=== PATIENT | female | born 1955 | race Caucasian/White ===

== ENCOUNTER 2017-05-21 14:00 | Inpatient (IN) | payer OTHER ==
[2017-05-21 15:57] VITALS: BMI 22.8
--- NOTE | 2017-05-21 17:37 | HP ---
COWS - Scale Resting Pulse: 0= [place] 80 or Below Sweatin=Flushed/Facial Moisture Restless Observation: 1= Difficult to Sit Still Pupil Size: 0= Normal to Room Light Bone or Joint Aches: 1= Mild Discomfort Runny Nose/ Eye Tearin= Runny Nose/Eyes GI Upset > 30mins: 3= Vomiting/Diarrhea (3x diarrhea) Tremor Observation: 2= Slight Tremor Visible Yawning Observation: 1= 1-2x During Session Anxiety or Irritability: 2=Irritable/Anxious Goose Flesh Skin: 0=Smooth Skin COWS Score: 14 CIWA Score - CIWA Score Nausea/Vomitin-Mild Nausea/No Vomiting Muscle Tremors: 2 Anxiety: 2 Agitation: 0-Normal Activity Paroxysmal Sweats: 3 Orientation: 0-Oriented Tacttile Disturbances: 2-Mild Itch/Numbness/Burn (hand and feet) Auditory Disturbances: 2-Mild Harshness/Frighten Visual Disturbances: 2-Mild Sensitivity Headache: 2-Mild CIWA-Ar Total Score: 16 Admission [facility] - HPI Chief Complaint: I am here to detox, everything hurts and I have diarrhea. Allergies/Adverse Reactions: Allergies Allergy/AdvReac Type Severity Reaction Status Date / Time Penicillins Allergy Unknown Verified 05/21/17 17:53 Fish Containing Products AdvReac Severe Verified 05/21/17 17:53 History of Present Illness: 61 yo female with hx heroin, alcohol, nicotine and heroin dependence is here seeking detox. PHMX: HTN not taking medication, OA, DM II not on medication, Hep C, hx of seizure d/t head trauma, insomnia, depression and anxiety. Denies hx of alcohol related seizures, black outs or overdose. Denies suicidal / homicidal ideation, reports suicidal thoughts when her mother passed in 1999. Last detox 12 years ago [facility]. Longest period of sobriety 12 years. Exam Limitations: No Limitations - Ebola screening Have you traveled outside of the country in the last 21 days: No Have you had contact with anyone from an Ebola affected area: No Have you been sick,other than usual withdrawal symptoms: No Do you have a fever: No - Review of Systems Constitutional: Chills, Loss of Appetite, Changes in sleep, Weakness, Unintentional Wgt. Loss (12 lbs in the past week) EENT: reports: Double Vision, Tearing, Dental Problems (pain on gums x 3 years) , Other (floaters) Respiratory: reports: SOB with Exertion (going up the steps) Cardiac: reports: Edema (ankles and) GI: reports: Diarrhea, Nausea, Poor Appetite, Poor Fluid Intake, Abdominal cramping : reports: No Symptoms Reported Musculoskeletal: reports: Joint Pain (wrist, elbows, knees, feet), Other (uses a cane for ambulation) Integumentary: reports: No Symptoms Reported Neuro: reports: Headache, Numbness, Tingling, Other (uses cane for ambualtion) Endocrine: reports: Increased Thirst Hematology: reports: Anemia Psychiatric: reports: Orientated x3, Depressed Other Systems: Reviewed and Negative Patient History - Patient Medical History Hx Anemia: Yes (not in medication ) Hx Asthma: No Hx Chronic Obstructive Pulmonary Disease (COPD): No Hx Cancer: No Hx Cardiac Disorders: No Hx Congestive Heart Failure: No Hx Hypertension: Yes ( not on medication ) Hx Hypercholesterolemia: No Hx Pacemaker: No HX Cerebrovascular Accident: Yes (2007) Hx Seizures: Yes (seizure r/t to head trauma, last seizure 45 days ago tx at [facility] ) Hx Dementia: No Hx Diabetes: Yes (no on medications ) Hx Gastrointestinal Disorders: No Hx Liver Disease: Yes (Hep C not treated ) Hx Genitourinary Disorders: No Hx Sexually Transmitted Disorders: No Hx Renal Disease (ESRD): No Hx Thyroid Disease: No Hx Human Immunodeficiency Virus (HIV): No (Last tested August 2016) Hx Hepatitis C: Yes Hx Depression: Yes Hx Suicide Attempt: No (no attempts but has had ideation 1999) Hx Bipolar Disorder: No Hx Schizophrenia: No - Patient Surgical History Past Surgical History: Yes Hx Neurologic Surgery: No Hx Cataract Extraction: No Hx Cardiac Surgery: No Hx Lung Surgery: No Hx Breast Surgery: No Hx Breast Biopsy: No Hx Abdominal Surgery: Yes (removal of on intestinal blockage 7 years ago ) Hx Appendectomy: No Hx Cholecystectomy: No Hx Genitourinary Surgery: No Hx Section: No Hx Orthopedic Surgery: No Hx Hysterectomy: No Other Surgical History: 2 atopic pregnacies - PPD History Previous Implant?: No Documented Results: Positive w/o proof PPD to be Administered?: No - Reproductive History Patient is a Female of Child Bearing Age (11 -55 yrs old): No - Smoking Cessation Smoking history: Current every day smoker Have you smoked in the past 12 months: Yes Aproximately how many cigarettes per day: 6 Cigars Per Day: 0 Hx Chewing Tobacco Use: No Initiated information on smoking cessation: Yes 'Breaking Loose' booklet given: 05/21/17 - Substance & Tx. History Hx Alcohol Use: Yes Hx Substance Use: Yes Substance Use Type: Alcohol, Cocaine, Heroin Hx Substance Use Treatment: Yes ([facility] 12 years ago ) - Substances Abused Alcohol Route: Oral Frequency: Daily Amount used: 3- 4 bottles of 40 oz beers Age of first use: 35 Date of Last Use: 05/19/17 Cocaine Route: Smoking Frequency: 3-6 times per week Amount used: $20-$50 Age of first use: 35 Date of Last Use: 05/20/17 Heroin Route: Inhalation Frequency: Daily Amount used: 4 - 5 Age of first use: 35 Date of Last Use: 05/20/17 Family Disease History - Family Disease History Family Disease History: [place]: Father (, [place] ), Mother (, ovarian cancer), Other: Father, Mother, Brother (, IV heroin ), Sister (, IV heroin ) Admission Physical Exam [facility] - Vital Signs Vital Signs: Vital Signs - 24 hr 05/21/17 15:51 Temperature 98.0 F Pulse Rate 79 Respiratory 16 Rate Blood Pressure 149/79 - Physical General Appearance: Yes: Disheveled, Thin, Sweating, Anxious HEENTM: Yes: EOMI, Hearing grossly Normal, Normal ENT Inspection, Normocephalic , Normal Voice, Pharynx Normal, Tm's normal, Rhinorrhea Respiratory: Yes: Chest Non-Tender, Lungs Clear, Normal Breath Sounds, No Respiratory Distress, No Accessory Muscle Use Neck: Yes: No masses,lesions,Nodules, Trachea in good position Breast: Yes: Breast Exam Deferred Cardiology: Yes: Regular Rhythm, Regular Rate, S1, S2, Murmur Abdominal: Yes: Normal Bowel Sounds, Non Tender, Flat, Soft Genitourinary: Yes: Within Normal Limits Back: Yes: Normal Inspection Musculoskeletal: Yes: Gait Steady, Pelvis Stable, Other (Joint pain : elbows, right wrist, b/t knees) Extremities: Yes: Normal Capillary Refill, Normal Inspection, Normal Range of Motion, Non-Tender Neurological: Yes: Within Normal Limits, web portal developer II-XII NML intact, Fully Oriented, Alert, Motor Strength 5/5, Depressed Affect Integumentary: Yes: Normal Color, Dry, Warm Lymphatic: Yes: Within Normal Limits - Diagnostic (1) Cocaine dependence Current Visit: Yes Status: Acute Qualifiers: Substance use status: uncomplicated Qualified Code(s): F14.20 - Cocaine dependence, uncomplicated (2) Opioid dependence with withdrawal Current Visit: Yes Status: Acute (3) Hypertension Current Visit: Yes Status: Acute Qualifiers: Hypertension type: essential hypertension Qualified Code(s): I10 - Essential (primary) hypertension Comment: no medication (4) Alcohol dependence with withdrawal Current Visit: Yes Status: Acute Qualifiers: Complication of substance-induced condition: uncomplicated Qualified Code(s ): F10.230 - Alcohol dependence with withdrawal, uncomplicated (5) Nicotine dependence Current Visit: Yes Status: Chronic Qualifiers: Nicotine product type: cigarettes (6) Murmur Current Visit: Yes Status: Chronic (7) History of seizure Current Visit: Yes Status: Chronic (8) Diabetes mellitus type 2, diet-controlled Current Visit: Yes Status: Chronic (9) Hepatitis C Current Visit: Yes Status: Chronic Qualifiers: Viral hepatitis chronicity: unspecified (10) Depressed affect Current Visit: Yes Status: Acute (11) Difficulty sleeping Current Visit: Yes Status: Acute (12) Weight loss Current Visit: Yes Status: Acute Cleared for Admission S - Detox or Rehab [facility] Level of Care: Medically Managed Detox Regimen/Protocol: Methadone/Librium S Breath Alcohol Content Breath Alcohol Content: 0 Urine Drug Screen - Results Drug Screen Negative: No Urine Drug Screen Results: THC-Marijuana, JEANETH-Cocaine, OPI-Opiates, BAR- Barbiturates, TCA-Tricyclic Antidepress, OXY-Oxycodone
[2017-05-21] MEDS ORDERED: METHADONE HCL 10 MG TABLET (FOR DETOX USE ONLY) PO ONE ×2 (17:55→23:00)
[2017-05-21] MEDS ORDERED: chlordiazePOXIDE HCL 25 MG CAPSULE PO ONE (17:55)
[2017-05-21] MEDS ORDERED: guaiFENesin/D-METHORPHAN HB 10 ML UNIT-DOSE CUPS PO PRN (18:02)
[2017-05-21] MEDS ORDERED: IBUPROFEN 400 MG TABLET (FP) PO PRN (18:02)
[2017-05-21] MEDS ORDERED: P-EPHED 60MG/TRIPROLIDI 2.5MG TABLET PO PRN (18:02)
[2017-05-21] MEDS ORDERED: MAGNESIUM CITRATE 300 ML BOTTLE PO PRN (18:02)
[2017-05-21] MEDS ORDERED: NICOTINE POLACRILEX 2 MG GUM BC PRN (18:02)
[2017-05-21] MEDS ORDERED: hydrOXYzine PAMOATE 25 MG CAPSULE (FP) PO PRN (18:02)
[2017-05-21] MEDS ORDERED: MENTHOL/PHENOL 1 EACH UD MM PRN (18:02)
[2017-05-21] MEDS ORDERED: MAG HYDROX/AL HYDROX/SIMETH 30 ML UNIT-DOSE CUP PO PRN (18:02)
[2017-05-21] MEDS ORDERED: ACETAMINOPHEN 325 MG TABLET (FP) PO PRN (18:02)
[2017-05-21] MEDS: chlordiazePOXIDE HCL 25 MG CAPSULE PO PRN (20:12)
[2017-05-21] MEDS ORDERED: METHADONE HCL 10 MG TABLET (FOR DETOX USE ONLY) ONE (20:18)
[2017-05-21] MEDS: chlordiazePOXIDE HCL 25 MG CAPSULE PO SCH (22:23)
[2017-05-21] MEDS: THIAMINE HCL 100 MG TABLET (FP) PO SCH (22:23)
[2017-05-21 23:58] LABS: URINE APPEARANCE CLOUDY; URINE BILIRUBIN NEGATIVE (NEGATIVE); URINE BLOOD NEGATIVE (NEGATIVE); URINE COLOR AMBER; URINE GLUCOSE (UA) NEGATIVE (NEGATIVE); URINE KETONE TRACE (NEGATIVE); URINE NITRITE NEGATIVE (NEGATIVE)
[2017-05-22 00:03] LABS: URINE LEUK ESTERASE 2+ (NEGATIVE); URINE PROTEIN 2+ (NEGATIVE)
[2017-05-22 00:13] LABS: EPI CELLS RARE /HPF (FEW); URINE BACTERIA RARE /hpf (NONE SEEN); URINE HYALINE CAST 38 /lpf; URINE MUCUS MANY
[2017-05-22] MEDS: chlordiazePOXIDE HCL 25 MG CAPSULE PO SCH ×4 (05:53→22:33)
--- NOTE | 2017-05-22 09:23 | PN ---
S CIWA - CIWA Score Nausea/Vomitin-Mild Nausea/No Vomiting Muscle Tremors: 4-Moderate,w/Arms Extend Anxiety: 4-Mod. Anxious/Guarded Agitation: 4-Moderately Restless Paroxysmal Sweats: 1-Minimal Palms Moist Orientation: 0-Oriented Tacttile Disturbances: 0-None Auditory Disturbances: 0-None Visual Disturbances: 0-None Headache: 0-None Present CIWA-Ar Total Score: 14 BHS COWS - Scale Resting Pulse: 1= [place] 81-100 Sweatin= Chills/Flushing Restless Observation: 1= Difficult to Sit Still Pupil Size: 0= Normal to Room Light Bone or Joint Aches: 2= Severe Diffuse Aches Runny Nose/ Eye Tearin= Nasal Congestion GI Upset > 30mins: 2= Nausea/Diarrhea Tremor Observation of Outstretched Hands: 2= Slight Tremor Visible Yawning Observation: 2= >3x During Session Anxiety or Irritability: 1=Feels Anxious/Irritable Goose Flesh Skin: 0=Smooth Skin COWS Score: 13 S Progress Note (SOAP) Subjective: joint pain body ache sweat tremor restlessness Objective: 05/22/17 09:22 Vital Signs Temperature 97.9 F 05/22/17 06:20 Pulse Rate 81 05/22/17 06:20 Respiratory Rate 18 05/22/17 06:20 Blood Pressure 128/81 05/22/17 06:20 O2 Sat by Pulse Oximetry (%) Laboratory Last Values POC Glucometer 103 UNITS (80-120) 05/22/17 06:10 Urine Color Ankita 05/21/17 23:40 Urine Appearance Cloudy 05/21/17 23:40 Urine pH 5.0 (5.0-8.0) 05/21/17 23:40 Ur Specific [place] 1.025 (1.001-1.035) 05/21/17 23:40 Urine Protein 2+ (NEGATIVE) H 05/21/17 23:40 Urine Glucose (UA) Negative (NEGATIVE) 05/21/17 23:40 Urine Ketones Trace (NEGATIVE) H 05/21/17 23:40 Urine Blood Negative (NEGATIVE) 05/21/17 23:40 Urine Nitrite Negative (NEGATIVE) 05/21/17 23:40 Urine Bilirubin Negative (NEGATIVE) 05/21/17 23:40 Urine Urobilinogen 2.0 mg/dL (0.2-1.0) H 05/21/17 23:40 Ur Leukocyte Esterase 2+ (NEGATIVE) H 05/21/17 23:40 Urine WBC (Auto) 31 /hpf (3-5) 05/21/17 23:40 Urine RBC (Auto) 4 /hpf (0-3) 05/21/17 23:40 Ur Epithelial Cells Rare /HPF (FEW) 05/21/17 23:40 Urine Bacteria Rare /hpf (NONE SEEN) 05/21/17 23:40 Hyaline Casts 38 /lpf 05/21/17 23:40 Urine Mucus Many 05/21/17 23:40 lab noted Assessment: 05/22/17 09:22 withdrawal sx Plan: continue detox
--- NOTE | 2017-05-22 09:55 | CONSULT ---
[facility] Psychiatric Consult - Data Date of interview: 05/22/17 Admission source: [facility] Identifying data: Pt. is a 61 year old single woman, without kids, unemployed and homeless. This is patient's first admission to [facility]. Pt. admitted to detox for alcohol, heroin and cocaine admission. Substance Abuse History: Following information confirmed with Ms. Mabry: Smoking Cessation. Smoking history: Current every day smoker. Have you smoked in the past 12 months: Yes. Aproximately how many cigarettes per day: 6. Cigars Per Day: 0. Hx Chewing Tobacco Use: No. Initiated information on smoking cessation: Yes. 'Breaking Loose' booklet given: 05/21/17. - Substance & Tx. History. Hx Alcohol Use: Yes. Hx Substance Use: Yes. Substance Use Type : Alcohol, Cocaine, Heroin. Hx Substance Use Treatment: Yes ([facility] 12 years ago ). - Substances Abused. Alcohol. Route: Oral. Frequency: Daily. Amount used: 3- 4 bottles of 40 oz beers. Age of first use: 35. Date of Last Use: 05/19/17. Cocaine. Route: Smoking. Frequency: 3-6 times per week. Amount used: $20-$50. Age of first use: 35. Date of Last Use: . Heroin. Route: Inhalation. Frequency: Daily. Amount used: 4 - 5. Age of first use: 35. Date of Last Use: 05/20/17 Medical History: Anemia, hypertension, Seizures( r/t head trauma last seen [address] [facility]) Hep C Psychiatric History: Pt. denies h/o psychiatric hospitalizations, suicide attempts and outpatient care. Pt. is currently prescribed tregatol for seizures. Physical/Sexual Abuse/Trauma History: Denies. Mental Status Exam - Mental Status Exam Alert and Oriented to: Time, Place, Person Cognitive Function: Good Patient Appearance: Well Groomed Mood: Euthymic Affect: Appropriate Patient Behavior: Appropriate, Cooperative Speech Pattern: Appropriate Voice Loudness: Normal Thought Process: Intact Thought Disorder: Not Present Hallucinations: Denies Suicidal Ideation: Denies Homicidal Ideation: Denies Insight/Judgement: Poor Sleep: Poorly Appetite: Fair Muscle strength/Tone: Normal Gait/Station: Normal Psychiatric Findings - Problem List ([place] 1, 2,3) (1) Insomnia Current Visit: Yes Status: Acute (2) Alcohol dependence with withdrawal Current Visit: Yes Status: Acute Qualifiers: Complication of substance-induced condition: uncomplicated Qualified Code(s ): F10.230 - Alcohol dependence with withdrawal, uncomplicated (3) Cocaine dependence Current Visit: Yes Status: Acute Qualifiers: Substance use status: uncomplicated Qualified Code(s): F14.20 - Cocaine dependence, uncomplicated (4) Opioid dependence with withdrawal Current Visit: Yes Status: Acute (5) Nicotine dependence Current Visit: Yes Status: Chronic Qualifiers: Nicotine product type: cigarettes - Initial Treatment Plan Initial Treatment Plan: Psychoeducation provided. Detoxification in progress. Ambien 5mg qhs prn. Benefits and side effects (sleep walking) discussed. Verbal consent given. Will continue to monitor.
[2017-05-22] MEDS ORDERED: METHADONE HCL 10 MG TABLET (FOR DETOX USE ONLY) PO SCH (10:00)
[2017-05-22] MEDS: NICOTINE 14 MG/24 HOURS TOPICAL PATCH TD SCH (10:13)
[2017-05-22] MEDS: PRENATAL VITAMINS W/ FOLIC ACID TABLET (FP) PO SCH (10:13)
[2017-05-22 10:14] LABS: HEMATOCRIT 36.2 % (32.4-45.2); HEMOGLOBIN 12.1 GM/dL (10.7-15.3); MCH 28.5 pg (25.7-33.7); MCHC 33.4 g/dl (32.0-36.0); MEAN CELL VOLUME 85.4 fl (80-96); MEAN PLT VOLUME 10.1 fl (7.5-11.1); PLATELET COUNT 167 K/MM3 (134-434); RBC 4.23 M/mm3 (3.60-5.2); RDW 14.7 % (11.6-15.6); WHITE BLOOD COUNT 6.3 K/mm3 (4.0-10.0)
[2017-05-22 10:21] LABS: ANION GAP 14 (8-16); BILIRUBIN,TOTAL 0.2 mg/dL (0.2-1.0); BLOOD UREA NITROGEN 23 mg/dL (7-18); CALCIUM 7.7 mg/dL (8.5-10.1); CHLORIDE 107 mmol/L (98-107); CO2 23 mmol/L (21-32); CREATININE 0.7 mg/dL (0.55-1.02); GLUCOSE,RANDOM 112 mg/dL (74-106); POTASSIUM 3.6 mmol/L (3.5-5.1); SGOT/AST 20 U/L (15-37); SGPT/ALT 21 U/L (12-78); SODIUM 144 mmol/L (136-145); TOT PROT 5.7 g/dl (6.4-8.2)
[2017-05-22 10:22] LABS: ALK PHOS 96 U/L (45-117)
--- NOTE | 2017-05-22 11:12 | PN ---
S Progress Note Note: un-witness fall buttock on ground O denies pain, alert, oriented x 3, own slipper is not equip for non-slip encourage the patient not to wear her own slipper S 120/59 86 18 98.2 lumbar skin intact no bruise none tender, no swell, able to move actively her both legs freely on the bed, skin warm +2 pulses A unwitness fall P as per protocol ambulance had been called to ER evaluation, information provided to ER #1 fall protocol
--- NOTE | 2017-05-22 12:14 | EKG ---
Test Reason : Blood Pressure : / mmHG Vent. Rate : 072 BPM Atrial Rate : 072 BPM P-R Int : 170 ms QRS Dur : 068 ms QT Int : 396 ms P-R-T Axes : 074 043 053 degrees QTc Int : 433 ms NORMAL SINUS RHYTHM NORMAL ECG NO PREVIOUS ECGS AVAILABLE Confirmed by MD DONNELL, JED ([id number]) on 05/22/2017 12:13:55 PM Referred By: Confirmed By:JED JACOBO MD
[2017-05-22] MEDS: LOPERAMIDE HCL 2 MG CAPSULE PO PRN ×2 (14:55→22:34)
[2017-05-22] MEDS: chlordiazePOXIDE HCL 25 MG CAPSULE PO PRN (19:16)
[2017-05-22] MEDS ORDERED: ZOLPIDEM TARTRATE 5 MG TABLET PO PRN (22:00)
[2017-05-22] MEDS: THIAMINE HCL 100 MG TABLET (FP) PO SCH (22:33)
[2017-05-23] MEDS: chlordiazePOXIDE HCL 25 MG CAPSULE PO PRN (02:36)
[2017-05-23] MEDS: chlordiazePOXIDE HCL 25 MG CAPSULE PO SCH ×3 (06:03→17:35)
--- NOTE | 2017-05-23 10:41 | PN ---
[facility] CIWA - CIWA Score Nausea/Vomitin-Mild Nausea/No Vomiting Muscle Tremors: 4-Moderate,w/Arms Extend Anxiety: 3 Agitation: 3 Paroxysmal Sweats: 1-Minimal Palms Moist Orientation: 0-Oriented Tacttile Disturbances: 0-None Auditory Disturbances: 0-None Visual Disturbances: 0-None Headache: 0-None Present CIWA-Ar Total Score: 12 BHS COWS - Scale Resting Pulse: 0= [place] 80 or Below Sweatin= Chills/Flushing Restless Observation: 1= Difficult to Sit Still Pupil Size: 0= Normal to Room Light Bone or Joint Aches: 1= Mild Discomfort Runny Nose/ Eye Tearin= Nasal Congestion GI Upset > 30mins: 1= Stomach Cramp Tremor Observation of Outstretched Hands: 2= Slight Tremor Visible Yawning Observation: 2= >3x During Session Anxiety or Irritability: 2=Irritable/Anxious Goose Flesh Skin: 0=Smooth Skin COWS Score: 11 S Progress Note (SOAP) Subjective: joint ache muscle pain sweat restlessness tremor anxiety mild gi distress Objective: 05/23/17 10:40 Vital Signs Temperature 96.8 F L 05/23/17 06:49 Pulse Rate 74 05/23/17 06:49 Respiratory Rate 18 05/23/17 06:49 Blood Pressure 123/70 05/23/17 06:49 O2 Sat by Pulse Oximetry (%) Laboratory Last Values WBC 6.3 K/mm3 (4.0-10.0) 05/22/17 07:00 RBC 4.23 M/mm3 (3.60-5.2) 05/22/17 07:00 Hgb 12.1 GM/dL (10.7-15.3) 05/22/17 07:00 Hct 36.2 % (32.4-45.2) 05/22/17 07:00 MCV 85.4 fl (80-96) 05/22/17 07:00 MCH 28.5 pg (25.7-33.7) 05/22/17 07:00 MCHC 33.4 g/dl (32.0-36.0) 05/22/17 07:00 RDW 14.7 % (11.6-15.6) 05/22/17 07:00 Plt Count 167 K/MM3 (134-434) 05/22/17 07:00 MPV 10.1 fl (7.5-11.1) 05/22/17 07:00 Sodium 144 mmol/L (136-145) 05/22/17 07:00 Potassium 3.6 mmol/L (3.5-5.1) 05/22/17 07:00 Chloride 107 mmol/L (98-107) 05/22/17 07:00 Carbon Dioxide 23 mmol/L (21-32) 05/22/17 07:00 Anion Gap 14 (8-16) 05/22/17 07:00 BUN 23 mg/dL (7-18) H 05/22/17 07:00 Creatinine 0.7 mg/dL (0.55-1.02) 05/22/17 07:00 Creat Clearance w eGFR > 60 (>60) 05/22/17 07:00 POC Glucometer 92 UNITS (80-120) 05/23/17 05:58 Random Glucose 112 mg/dL (74-106) H 05/22/17 07:00 Calcium 7.7 mg/dL (8.5-10.1) L 05/22/17 07:00 Total Bilirubin 0.2 mg/dL (0.2-1.0) 05/22/17 07:00 AST 20 U/L (15-37) 05/22/17 07:00 ALT 21 U/L (12-78) 05/22/17 07:00 Alkaline Phosphatase 96 U/L (45-117) 05/22/17 07:00 Total Protein 5.7 g/dl (6.4-8.2) L 05/22/17 07:00 Albumin 3.0 g/dl (3.4-5.0) L 05/22/17 07:00 Urine Color Ankita 05/21/17 23:40 Urine Appearance Cloudy 05/21/17 23:40 Urine pH 5.0 (5.0-8.0) 05/21/17 23:40 Ur Specific [place] 1.025 (1.001-1.035) 05/21/17 23:40 Urine Protein 2+ (NEGATIVE) H 05/21/17 23:40 Urine Glucose (UA) Negative (NEGATIVE) 05/21/17 23:40 Urine Ketones Trace (NEGATIVE) H 05/21/17 23:40 Urine Blood Negative (NEGATIVE) 05/21/17 23:40 Urine Nitrite Negative (NEGATIVE) 05/21/17 23:40 Urine Bilirubin Negative (NEGATIVE) 05/21/17 23:40 Urine Urobilinogen 2.0 mg/dL (0.2-1.0) H 05/21/17 23:40 Ur Leukocyte Esterase 2+ (NEGATIVE) H 05/21/17 23:40 Urine WBC (Auto) 31 /hpf (3-5) 05/21/17 23:40 Urine RBC (Auto) 4 /hpf (0-3) 05/21/17 23:40 Ur Epithelial Cells Rare /HPF (FEW) 05/21/17 23:40 Urine Bacteria Rare /hpf (NONE SEEN) 05/21/17 23:40 Hyaline Casts 38 /lpf 05/21/17 23:40 Urine Mucus Many 05/21/17 23:40 RPR Titer Nonreactive (NONREACTIVE) 05/22/17 07:00 HIV 1&2 Antibody Screen Negative 05/22/17 08:00 HIV P24 Antigen Negative 05/22/17 08:00 lab noted Assessment: 05/23/17 10:41 withdrawal sx Plan: continue detox
[2017-05-23] MEDS: PRENATAL VITAMINS W/ FOLIC ACID TABLET (FP) PO SCH (10:43)
[2017-05-23] MEDS: NICOTINE 14 MG/24 HOURS TOPICAL PATCH TD SCH (10:44)
[2017-05-23] MEDS: METHADONE HCL 5 MG TABLET (FOR DETOX USE ONLY) PO SCH (10:44)
[2017-05-23] MEDS: THIAMINE HCL 100 MG TABLET (FP) PO SCH (22:34)
[2017-05-23] MEDS: chlordiazePOXIDE 5 MG CAPSULE PO SCH (22:34)
[2017-05-24] MEDS: chlordiazePOXIDE 5 MG CAPSULE PO SCH ×3 (05:54→17:05)
[2017-05-24] MEDS: PRENATAL VITAMINS W/ FOLIC ACID TABLET (FP) PO SCH (10:15)
[2017-05-24] MEDS: METHADONE HCL 5 MG TABLET (FOR DETOX USE ONLY) PO SCH (10:16)
[2017-05-24] MEDS: NICOTINE 14 MG/24 HOURS TOPICAL PATCH TD SCH (10:16)
--- NOTE | 2017-05-24 11:43 | PN ---
[facility] Progress Note (SOAP) Subjective: joint aches muscle pain stuffy nose sweat tremor restlessness irritable Objective: 05/24/17 11:42 Vital Signs Temperature 97.5 F L 05/24/17 10:58 Pulse Rate 60 05/24/17 10:58 Respiratory Rate 18 05/24/17 10:58 Blood Pressure 97/55 05/24/17 10:58 O2 Sat by Pulse Oximetry (%) Laboratory Last Values WBC 6.3 K/mm3 (4.0-10.0) 05/22/17 07:00 RBC 4.23 M/mm3 (3.60-5.2) 05/22/17 07:00 Hgb 12.1 GM/dL (10.7-15.3) 05/22/17 07:00 Hct 36.2 % (32.4-45.2) 05/22/17 07:00 MCV 85.4 fl (80-96) 05/22/17 07:00 MCH 28.5 pg (25.7-33.7) 05/22/17 07:00 MCHC 33.4 g/dl (32.0-36.0) 05/22/17 07:00 RDW 14.7 % (11.6-15.6) 05/22/17 07:00 Plt Count 167 K/MM3 (134-434) 05/22/17 07:00 MPV 10.1 fl (7.5-11.1) 05/22/17 07:00 Sodium 144 mmol/L (136-145) 05/22/17 07:00 Potassium 3.6 mmol/L (3.5-5.1) 05/22/17 07:00 Chloride 107 mmol/L (98-107) 05/22/17 07:00 Carbon Dioxide 23 mmol/L (21-32) 05/22/17 07:00 Anion Gap 14 (8-16) 05/22/17 07:00 BUN 23 mg/dL (7-18) H 05/22/17 07:00 Creatinine 0.7 mg/dL (0.55-1.02) 05/22/17 07:00 Creat Clearance w eGFR > 60 (>60) 05/22/17 07:00 POC Glucometer 94 UNITS (80-120) 05/24/17 05:55 Random Glucose 112 mg/dL (74-106) H 05/22/17 07:00 Calcium 7.7 mg/dL (8.5-10.1) L 05/22/17 07:00 Total Bilirubin 0.2 mg/dL (0.2-1.0) 05/22/17 07:00 AST 20 U/L (15-37) 05/22/17 07:00 ALT 21 U/L (12-78) 05/22/17 07:00 Alkaline Phosphatase 96 U/L (45-117) 05/22/17 07:00 Total Protein 5.7 g/dl (6.4-8.2) L 05/22/17 07:00 Albumin 3.0 g/dl (3.4-5.0) L 05/22/17 07:00 Urine Color [place] 05/21/17 23:40 Urine Appearance Cloudy 05/21/17 23:40 Urine pH 5.0 (5.0-8.0) 05/21/17 23:40 Ur Specific [place] 1.025 (1.001-1.035) 05/21/17 23:40 Urine Protein 2+ (NEGATIVE) H 05/21/17 23:40 Urine Glucose (UA) Negative (NEGATIVE) 05/21/17 23:40 Urine Ketones Trace (NEGATIVE) H 05/21/17 23:40 Urine Blood Negative (NEGATIVE) 05/21/17 23:40 Urine Nitrite Negative (NEGATIVE) 05/21/17 23:40 Urine Bilirubin Negative (NEGATIVE) 05/21/17 23:40 Urine Urobilinogen 2.0 mg/dL (0.2-1.0) H 05/21/17 23:40 Ur Leukocyte Esterase 2+ (NEGATIVE) H 05/21/17 23:40 Urine WBC (Auto) 31 /hpf (3-5) 05/21/17 23:40 Urine RBC (Auto) 4 /hpf (0-3) 05/21/17 23:40 Ur Epithelial Cells Rare /HPF (FEW) 05/21/17 23:40 Urine Bacteria Rare /hpf (NONE SEEN) 05/21/17 23:40 Hyaline Casts 38 /lpf 05/21/17 23:40 Urine Mucus Many 05/21/17 23:40 RPR Titer Nonreactive (NONREACTIVE) 05/22/17 07:00 HIV 1&2 Antibody Screen Negative 05/22/17 08:00 HIV P24 Antigen Negative 05/22/17 08:00 lab noted Assessment: 05/24/17 11:43 withdrawal sx Plan: continue detox
[2017-05-24] MEDS: chlordiazePOXIDE HCL 10 MG CAPSULE PO SCH (22:24)
[2017-05-24] MEDS: THIAMINE HCL 100 MG TABLET (FP) PO SCH (22:24)
[2017-05-24] MEDS: PHENYTOIN NA EXTENDED 100 MG CAPSULE (FP) PO SCH (23:21)
[2017-05-25] MEDS: carBAMazepine 100 MG TAB.CHEW PO SCH ×3 (00:04→22:17)
[2017-05-25] MEDS: chlordiazePOXIDE HCL 10 MG CAPSULE PO SCH ×3 (06:00→17:34)
[2017-05-25] MEDS: PHENYTOIN NA EXTENDED 100 MG CAPSULE (FP) PO SCH ×3 (06:00→22:17)
[2017-05-25] MEDS ORDERED: METHADONE HCL 10 MG TABLET (FOR DETOX USE ONLY) PO SCH (10:00)
[2017-05-25] MEDS: NICOTINE 14 MG/24 HOURS TOPICAL PATCH TD SCH (10:34)
[2017-05-25] MEDS: PRENATAL VITAMINS W/ FOLIC ACID TABLET (FP) PO SCH (10:34)
--- NOTE | 2017-05-25 12:38 | PN ---
[facility] Progress Note (SOAP) Subjective: interrupted sleep, sweats, shakes, no sz's Objective: 05/25/17 12:37 Vital Signs Temperature 97.9 F 05/25/17 10:40 Pulse Rate 68 05/25/17 10:40 Respiratory Rate 18 05/25/17 10:40 Blood Pressure 112/56 05/25/17 10:40 O2 Sat by Pulse Oximetry (%) Laboratory Tests 05/21/17 05/22/17 05/22/17 23:40 06:10 07:00 WBC 6.3 RBC 4.23 Hgb 12.1 Hct 36.2 MCV 85.4 MCH 28.5 MCHC 33.4 RDW 14.7 Plt Count 167 MPV 10.1 Sodium Potassium Chloride Carbon Dioxide Anion Gap BUN Creatinine Creat Clearance w eGFR POC Glucometer 103 Random Glucose Calcium Total Bilirubin AST ALT Alkaline Phosphatase Total Protein Albumin Urine Color [place] Urine Appearance Cloudy Urine pH 5.0 Ur Specific [place] 1.025 Urine Protein 2+ H Urine Glucose (UA) Negative Urine Ketones Trace H Urine Blood Negative Urine Nitrite Negative Urine Bilirubin Negative Urine Urobilinogen 2.0 H Ur Leukocyte Esterase 2+ H Urine WBC (Auto) 31 Urine RBC (Auto) 4 Ur Epithelial Cells Rare Urine Bacteria Rare Hyaline Casts 38 Urine Mucus Many Phenytoin RPR Titer HIV 1&2 Antibody Screen HIV P24 Antigen 05/22/17 05/22/17 05/22/17 07:00 07:00 08:00 WBC RBC Hgb Hct MCV MCH MCHC RDW Plt Count MPV Sodium 144 Potassium 3.6 Chloride 107 Carbon Dioxide 23 Anion Gap 14 BUN 23 H Creatinine 0.7 Creat Clearance w eGFR > 60 POC Glucometer Random Glucose 112 H Calcium 7.7 L Total Bilirubin 0.2 AST 20 ALT 21 Alkaline Phosphatase 96 Total Protein 5.7 L Albumin 3.0 L Urine Color Urine Appearance Urine pH Ur Specific [place] Urine Protein Urine Glucose (UA) Urine Ketones Urine Blood Urine Nitrite Urine Bilirubin Urine Urobilinogen Ur Leukocyte Esterase Urine WBC (Auto) Urine RBC (Auto) Ur Epithelial Cells Urine Bacteria Hyaline Casts Urine Mucus Phenytoin RPR Titer Nonreactive HIV 1&2 Antibody Screen Negative HIV P24 Antigen Negative 05/22/17 05/23/17 05/23/17 12:11 05:58 16:44 WBC RBC Hgb Hct MCV MCH MCHC RDW Plt Count MPV Sodium Potassium Chloride Carbon Dioxide Anion Gap BUN Creatinine Creat Clearance w eGFR POC Glucometer [phone] 92 119 Random Glucose Calcium Total Bilirubin AST ALT Alkaline Phosphatase Total Protein Albumin Urine Color Urine Appearance Urine pH Ur Specific [place] Urine Protein Urine Glucose (UA) Urine Ketones Urine Blood Urine Nitrite Urine Bilirubin Urine Urobilinogen Ur Leukocyte Esterase Urine WBC (Auto) Urine RBC (Auto) Ur Epithelial Cells Urine Bacteria Hyaline Casts Urine Mucus Phenytoin RPR Titer HIV 1&2 Antibody Screen HIV P24 Antigen 05/24/17 05/24/17 05/25/17 05:55 16:39 06:21 WBC RBC Hgb Hct MCV MCH MCHC RDW Plt Count MPV Sodium Potassium Chloride Carbon Dioxide Anion Gap BUN Creatinine Creat Clearance w eGFR POC Glucometer 94 103 134 Random Glucose Calcium Total Bilirubin AST ALT Alkaline Phosphatase Total Protein Albumin Urine Color Urine Appearance Urine pH Ur Specific [place] Urine Protein Urine Glucose (UA) Urine Ketones Urine Blood Urine Nitrite Urine Bilirubin Urine Urobilinogen Ur Leukocyte Esterase Urine WBC (Auto) Urine RBC (Auto) Ur Epithelial Cells Urine Bacteria Hyaline Casts Urine Mucus Phenytoin RPR Titer HIV 1&2 Antibody Screen HIV P24 Antigen 05/25/17 08:00 WBC RBC Hgb Hct MCV MCH MCHC RDW Plt Count MPV Sodium Potassium Chloride Carbon Dioxide Anion Gap BUN Creatinine Creat Clearance w eGFR POC Glucometer Random Glucose Calcium Total Bilirubin AST ALT Alkaline Phosphatase Total Protein Albumin Urine Color Urine Appearance Urine pH Ur Specific [place] Urine Protein Urine Glucose (UA) Urine Ketones Urine Blood Urine Nitrite Urine Bilirubin Urine Urobilinogen Ur Leukocyte Esterase Urine WBC (Auto) Urine RBC (Auto) Ur Epithelial Cells Urine Bacteria Hyaline Casts Urine Mucus Phenytoin < 2.5 L RPR Titer HIV 1&2 Antibody Screen HIV P24 Antigen pt aox3 in nad ambulating with cane 05/25/17 12:38 Assessment: 05/25/17 12:37 withdrawal sx's h/o sz's Plan: cont. detox increase fluids
[2017-05-25] MEDS ORDERED: PHENYTOIN NA EXTENDED 100 MG CAPSULE (FP) PO ONE (17:00)
[2017-05-25] MEDS: ALBUTEROL SO4 18 GM HFA INHALER IH SCH ×2 (17:38→22:17)
--- NOTE | 2017-05-25 20:11 | PN ---
[facility] Progress Note Note: Patient s/p witness fall and skip and fell on her buttocks by two other patients. Patient reports that she feels anxious because she is concern about her aftercare upon discharge. Vital Signs Temperature 97.5 F L 05/25/17 19:28 Pulse Rate 75 05/25/17 19:28 Respiratory Rate 18 05/25/17 19:28 Blood Pressure 109/73 05/25/17 19:28 O2 Sat by Pulse Oximetry (%) Laboratory Last Values WBC 6.3 K/mm3 (4.0-10.0) 05/22/17 07:00 RBC 4.23 M/mm3 (3.60-5.2) 05/22/17 07:00 Hgb 12.1 GM/dL (10.7-15.3) 05/22/17 07:00 Hct 36.2 % (32.4-45.2) 05/22/17 07:00 MCV 85.4 fl (80-96) 05/22/17 07:00 MCH 28.5 pg (25.7-33.7) 05/22/17 07:00 MCHC 33.4 g/dl (32.0-36.0) 05/22/17 07:00 RDW 14.7 % (11.6-15.6) 05/22/17 07:00 Plt Count 167 K/MM3 (134-434) 05/22/17 07:00 MPV 10.1 fl (7.5-11.1) 05/22/17 07:00 Sodium 144 mmol/L (136-145) 05/22/17 07:00 Potassium 3.6 mmol/L (3.5-5.1) 05/22/17 07:00 Chloride 107 mmol/L (98-107) 05/22/17 07:00 Carbon Dioxide 23 mmol/L (21-32) 05/22/17 07:00 Anion Gap 14 (8-16) 05/22/17 07:00 BUN 23 mg/dL (7-18) H 05/22/17 07:00 Creatinine 0.7 mg/dL (0.55-1.02) 05/22/17 07:00 Creat Clearance w eGFR > 60 (>60) 05/22/17 07:00 POC Glucometer 84 UNITS (80-120) 05/25/17 17:04 Random Glucose 112 mg/dL (74-106) H 05/22/17 07:00 Calcium 7.7 mg/dL (8.5-10.1) L 05/22/17 07:00 Total Bilirubin 0.2 mg/dL (0.2-1.0) 05/22/17 07:00 AST 20 U/L (15-37) 05/22/17 07:00 ALT 21 U/L (12-78) 05/22/17 07:00 Alkaline Phosphatase 96 U/L (45-117) 05/22/17 07:00 Total Protein 5.7 g/dl (6.4-8.2) L 05/22/17 07:00 Albumin 3.0 g/dl (3.4-5.0) L 05/22/17 07:00 Urine Color [place]ita 05/21/17 23:40 Urine Appearance Cloudy 05/21/17 23:40 Urine pH 5.0 (5.0-8.0) 05/21/17 23:40 Ur Specific [place] 1.025 (1.001-1.035) 05/21/17 23:40 Urine Protein 2+ (NEGATIVE) H 05/21/17 23:40 Urine Glucose (UA) Negative (NEGATIVE) 05/21/17 23:40 Urine Ketones Trace (NEGATIVE) H 05/21/17 23:40 Urine Blood Negative (NEGATIVE) 05/21/17 23:40 Urine Nitrite Negative (NEGATIVE) 05/21/17 23:40 Urine Bilirubin Negative (NEGATIVE) 05/21/17 23:40 Urine Urobilinogen 2.0 mg/dL (0.2-1.0) H 05/21/17 23:40 Ur Leukocyte Esterase 2+ (NEGATIVE) H 05/21/17 23:40 Urine WBC (Auto) 31 /hpf (3-5) 05/21/17 23:40 Urine RBC (Auto) 4 /hpf (0-3) 05/21/17 23:40 Ur Epithelial Cells Rare /HPF (FEW) 05/21/17 23:40 Urine Bacteria Rare /hpf (NONE SEEN) 05/21/17 23:40 Hyaline Casts 38 /lpf 05/21/17 23:40 Urine Mucus Many 05/21/17 23:40 Phenytoin < 2.5 ug/ml (10.0-20.0) L 05/25/17 08:00 RPR Titer Nonreactive (NONREACTIVE) 05/22/17 07:00 HIV 1&2 Antibody Screen Negative 05/22/17 08:00 HIV P24 Antigen Negative 05/22/17 08:00 Patient AO x 3, in no apparent distress, ambulation on the unit with cane, c/o of soreness on the buttocks. Patient with full ROM and negative neuro signs. Plan: Fall Protocol #[address] repeat U/A Increase fluids Continue to monitor
[2017-05-25] MEDS: THIAMINE HCL 100 MG TABLET (FP) PO SCH (22:17)
[2017-05-25] MEDS: MAGNESIUM HYDROX 2400MG/30ML ORAL SUSPENSION 30 ML CUP PO PRN (22:31)
[2017-05-26] MEDS: ALBUTEROL SO4 18 GM HFA INHALER IH SCH ×3 (04:00→22:42)
[2017-05-26] MEDS ORDERED: METHADONE HCL 5 MG TABLET (FOR DETOX USE ONLY) PO SCH (06:00)
[2017-05-26] MEDS: PHENYTOIN NA EXTENDED 100 MG CAPSULE (FP) PO SCH ×3 (06:51→22:41)
[2017-05-26 10:24] LABS: INR 0.99 (0.82-1.09); PROTHROMBIN TIME (PATIENT) 11.2 SEC (9.98-11.88)
[2017-05-26 10:25] LABS: URINE APPEARANCE CLEAR; URINE BILIRUBIN NEGATIVE (NEGATIVE); URINE BLOOD NEGATIVE (NEGATIVE); URINE COLOR LTYELLOW; URINE GLUCOSE (UA) NEGATIVE (NEGATIVE); URINE KETONE NEGATIVE (NEGATIVE); URINE LEUK ESTERASE NEGATIVE (NEGATIVE); URINE NITRITE NEGATIVE (NEGATIVE); URINE PROTEIN NEGATIVE (NEGATIVE); URINE UROBILINOGEN NEGATIVE mg/dL (0.2-1.0)
[2017-05-26 10:27] LABS: ACTIVATED PTT 37.1 SECONDS (26.9-34.4)
[2017-05-26] MEDS: PRENATAL VITAMINS W/ FOLIC ACID TABLET (FP) PO SCH (10:29)
[2017-05-26] MEDS: carBAMazepine 100 MG TAB.CHEW PO SCH ×2 (10:29→22:41)
[2017-05-26] MEDS: NICOTINE 14 MG/24 HOURS TOPICAL PATCH TD SCH (10:29)
[2017-05-26] MEDS: MAGNESIUM HYDROX 2400MG/30ML ORAL SUSPENSION 30 ML CUP PO PRN (14:54)
--- NOTE | 2017-05-26 15:26 | PN ---
[facility] Progress Note (SOAP) Subjective: ALERT,INTERRUPTED SLEEP Objective: 05/26/17 15:24 Vital Signs Temperature 98.1 F 05/26/17 14:08 Pulse Rate 73 05/26/17 14:08 Respiratory Rate 16 05/26/17 14:08 Blood Pressure 114/63 05/26/17 14:08 O2 Sat by Pulse Oximetry (%) Assessment: 05/26/17 15:24 WITHDRAWAL SYMPTOM Plan: CONTINUE DETOX,HISTORY OF FALL 05/25/17 ON FALL PROTOCOL 2 OBSERVATION, DISCHARGE IN AM
--- NOTE | 2017-05-26 18:46 | EKG ---
Test Reason : Blood Pressure : / mmHG Vent. Rate : 066 BPM Atrial Rate : 066 BPM P-R Int : 156 ms QRS Dur : 074 ms QT Int : 404 ms P-R-T Axes : 046 015 046 degrees QTc Int : 423 ms NORMAL SINUS RHYTHM NORMAL ECG WHEN COMPARED WITH ECG OF 21-MAY-2017 19:24, NO SIGNIFICANT CHANGE WAS FOUND Confirmed by OMKAR GLASER MD ([id number]) on 05/26/2017 6:45:58 PM Referred By: Confirmed By:OMKAR GLASER MD
[2017-05-26] MEDS: THIAMINE HCL 100 MG TABLET (FP) PO SCH (22:41)
[2017-05-27] MEDS: ALBUTEROL SO4 18 GM HFA INHALER IH SCH ×3 (00:04→11:02)
[2017-05-27] MEDS: PHENYTOIN NA EXTENDED 100 MG CAPSULE (FP) PO SCH (07:00)
[2017-05-27 10:01] VITALS: BP 118/57; PULSE 80; TEMP 98.1
--- NOTE | 2017-05-27 10:58 | DS ---
[facility] Detox Discharge Summary Admission Date: 05/21/17 Discharge Date: 05/27/17 - History Present History: Alcohol Dependence, Opioid Dependence Additional Comments: 61 years old female admitted for alcohol and opiate detox, alert oriented x 3 steady gait, denies pain, social with peers in day room ambulating in [address] good appetite tolerates food and fluid well, denies dizziness no shortness of breath no muscle joint pain cardiac s1s2 pulmonary clear bilaterally abdomen soft none tender extremities full range of motion, neuro cn ii-xiii grossly intact denies weakness patient wants to [facility], return 05/28/17 patient understands the consequences of medication adherence patient agrees to follow up with primary care provider - Physical Exam Results Vital Signs: Vital Signs Temperature 98.1 F 05/27/17 10:00 Pulse Rate 80 05/27/17 10:00 Respiratory Rate 18 05/27/17 10:00 Blood Pressure 118/57 05/27/17 10:00 O2 Sat by Pulse Oximetry (%) Pertinent Admission Physical Exam Findings: withdrawal sx Laboratory Last Values WBC 6.3 K/mm3 (4.0-10.0) 05/22/17 07:00 RBC 4.23 M/mm3 (3.60-5.2) 05/22/17 07:00 Hgb 12.1 GM/dL (10.7-15.3) 05/22/17 07:00 Hct 36.2 % (32.4-45.2) 05/22/17 07:00 MCV 85.4 fl (80-96) 05/22/17 07:00 MCH 28.5 pg (25.7-33.7) 05/22/17 07:00 MCHC 33.4 g/dl (32.0-36.0) 05/22/17 07:00 RDW 14.7 % (11.6-15.6) 05/22/17 07:00 Plt Count 167 K/MM3 (134-434) 05/22/17 07:00 MPV 10.1 fl (7.5-11.1) 05/22/17 07:00 PT with INR 11.20 SEC (9.98-11.88) 05/26/17 08:50 INR 0.99 (0.82-1.09) 05/26/17 08:50 PTT (Actin FS) 37.1 SECONDS (26.9-34.4) H 05/26/17 08:50 Sodium 144 mmol/L (136-145) 05/22/17 07:00 Potassium 3.6 mmol/L (3.5-5.1) 05/22/17 07:00 Chloride 107 mmol/L (98-107) 05/22/17 07:00 Carbon Dioxide 23 mmol/L (21-32) 05/22/17 07:00 Anion Gap 14 (8-16) 05/22/17 07:00 BUN 23 mg/dL (7-18) H 05/22/17 07:00 Creatinine 0.7 mg/dL (0.55-1.02) 05/22/17 07:00 Creat Clearance w eGFR > 60 (>60) 05/22/17 07:00 POC Glucometer 136 UNITS (80-120) 05/26/17 16:57 Random Glucose 112 mg/dL (74-106) H 05/22/17 07:00 Calcium 7.7 mg/dL (8.5-10.1) L 05/22/17 07:00 Total Bilirubin 0.2 mg/dL (0.2-1.0) 05/22/17 07:00 AST 20 U/L (15-37) 05/22/17 07:00 ALT 21 U/L (12-78) 05/22/17 07:00 Alkaline Phosphatase 96 U/L (45-117) 05/22/17 07:00 Total Protein 5.7 g/dl (6.4-8.2) L 05/22/17 07:00 Albumin 3.0 g/dl (3.4-5.0) L 05/22/17 07:00 Urine Color [place] 05/26/17 08:50 Urine Appearance Clear 05/26/17 08:50 Urine pH 6.0 (5.0-8.0) 05/26/17 08:50 Ur Specific [place] 1.012 (1.001-1.035) 05/26/17 08:50 Urine Protein Negative (NEGATIVE) 05/26/17 08:50 Urine Glucose (UA) Negative (NEGATIVE) 05/26/17 08:50 Urine Ketones Negative (NEGATIVE) 05/26/17 08:50 Urine Blood Negative (NEGATIVE) 05/26/17 08:50 Urine Nitrite Negative (NEGATIVE) 05/26/17 08:50 Urine Bilirubin Negative (NEGATIVE) 05/26/17 08:50 Urine Urobilinogen Negative mg/dL (0.2-1.0) 05/26/17 08:50 Ur Leukocyte Esterase Negative (NEGATIVE) 05/26/17 08:50 Urine WBC (Auto) 31 /hpf (3-5) 05/21/17 23:40 Urine RBC (Auto) 4 /hpf (0-3) 05/21/17 23:40 Ur Epithelial Cells Rare /HPF (FEW) 05/21/17 23:40 Urine Bacteria Rare /hpf (NONE SEEN) 05/21/17 23:40 Hyaline Casts 38 /lpf 05/21/17 23:40 Urine Mucus Many 05/21/17 23:40 Phenytoin < 2.5 ug/ml (10.0-20.0) L 05/25/17 08:00 RPR Titer Nonreactive (NONREACTIVE) 05/22/17 07:00 HIV 1&2 Antibody Screen Negative 05/22/17 08:00 HIV P24 Antigen Negative 05/22/17 08:00 lab noted - Treatment Hospital Course: Detox Protocol Followed, Detoxed Safely, Responded well, Discharged Condition Good, Rehab Referral Accepted Patient has Accepted a Re[facility] Referral to: [facility] - Medication Discharge Medications: Ambulatory Orders Albuterol Sulfate Inhaler - [Ventolin HFA Inhaler -] 2 inh PO Q6H #1 inhaler Carbamazepine [Tegretol -] 100 mg PO BID #60 tab.chew 05/27/17 Phenytoin Na Extended [Dilantin -] 100 mg PO TID #90 capsule 05/27/17 - Diagnosis (1) Opioid dependence with withdrawal Current Visit: Yes Status: Acute (2) Alcohol dependence with withdrawal Current Visit: Yes Status: Acute Qualifiers: Complication of substance-induced condition: uncomplicated Qualified Code(s ): F10.230 - Alcohol dependence with withdrawal, uncomplicated (3) Hepatitis C Current Visit: Yes Status: Chronic Qualifiers: Viral hepatitis chronicity: unspecified Hepatic coma status: without hepatic coma Qualified Code(s): B19.20 - Unspecified viral hepatitis C without hepatic coma (4) Fall with no injury Current Visit: Yes Status: Chronic Qualifiers: Encounter type: initial encounter Qualified Code(s): W19.XXXA - Unspecified fall, initial encounter - AMA Did Patient Leave Against Medical Advice: No
[2017-05-27] MEDS: PRENATAL VITAMINS W/ FOLIC ACID TABLET (FP) PO SCH (11:01)
[2017-05-27] MEDS: NICOTINE 14 MG/24 HOURS TOPICAL PATCH TD SCH (11:01)
[2017-05-27] MEDS: carBAMazepine 100 MG TAB.CHEW PO SCH (11:02)
== END 2017-05-27 14:25 | disposition home or self-care (01) | DRG 773 ==
LOC: YASAS 14:00 → Y6N 18:48
PROVIDERS: ADMIT Internal Medicine; ATTEND Internal Medicine
PROC: HZ2ZZZZ Detoxification Services for Substance Abuse Treatment (ICD-10-PCS; principal; 2017-05-21)
DX: F11.23 Opioid dependence with withdrawal (principal); F10.230 Alcohol dependence with withdrawal, uncomplicated; F14.20 Cocaine dependence, uncomplicated; F17.210 Nicotine dependence, cigarettes, uncomplicated; F41.8 Other specified anxiety disorders; G47.00 Insomnia, unspecified; I10 Essential (primary) hypertension; E11.9 Type 2 diabetes mellitus without complications; R63.4 Abnormal weight loss; Z68.22 Body mass index [BMI] 22.0-22.9, adult; Z86.69 Personal history of other diseases of the nervous system and sense organs; Z59.0 Homelessness
CPT/HCPCS: 36415; 71046-TC-FY; 80053; 80185; 81003; 81015; 82962; 85027; 85610; 85730; 86593; 87389; 93005; 93010

== ENCOUNTER 2017-05-22 11:51 | Emergency (ER) | payer OTHER ==
[2017-05-22 12:27] VITALS: BP 129/79; PULSE 74; TEMP 98.5; BMI 49.8
--- NOTE | 2017-05-22 12:46 | PDOC ---
History of Present Illness - General Chief Complaint: Injury Stated Complaint: fall Time Seen by Provider: 05/22/17 11:57 History Source: Patient Exam Limitations: No Limitations - History of Present Illness Initial Comments: 05/22/17 12:48 Patient states was trying to put on her shoes when the socks lost director database on the floor and she slipped and fell landing on her buttocks. Patient states did not strike her head, has no injury to her buttocks coccyx back or extremities. States detox program has insisted she needed evaluation. Patient's persistent denies there was any injury or any areas of pain. Occurred: reports: just prior to arrival, this morning Pain Location: reports: none Method of Injury: Yes: fall Modifying Factors: improves with: None Loss of Consciousness: no loss of consciousness Associated Symptoms (Fall): denies symptoms Past History - Travel Traveled outside of the country in the last 30 days: No Close contact w/someone who was outside of country & ill: No - Past Medical History Allergies/Adverse Reactions: Allergies Allergy/AdvReac Type Severity Reaction Status Date / Time Penicillins Allergy Unknown Verified 05/22/17 12:28 Fish Containing Products AdvReac Severe Verified 05/21/17 17:53 Home Medications: Ambulatory Orders Albuterol Sulfate Inhaler - [Ventolin Hfa Inhaler -] 2 inh PO Q6H 05/21/17 Carbamazepine [Tegretol -] 100 mg PO BID 05/21/17 Phenytoin Na Extended [Dilantin -] 100 mg PO TID 05/21/17 Anemia: Yes (not in medication ) Asthma: No Cancer: No Cardiac Disorders: No CVA: Yes (2007) COPD: No CHF: No Dementia: No Diabetes: Yes (no on medications ) GI Disorders: No Disorders: No HTN: Yes ( not on medication ) Hypercholesterolemia: No Liver Disease: Yes (Hep C not treated ) Seizures: Yes (seizure r/t to head trauma, last seizure 45 days ago tx at [facility] ) Thyroid Disease: No - Surgical History Abdominal Surgery: Yes (removal of on intestinal blockage 7 years ago ) Appendectomy: No Cardiac Surgery: No Cholecystectomy: No Lung Surgery: No Neurologic Surgery: No Orthopedic Surgery: No - Immunization History Immunization Up to Date: Yes - Suicide/Smoking/Psychosocial Hx Smoking History: Former smoker Have you smoked in the past 12 months: Yes Number of Cigarettes Smoked Daily: 40 If you are a former smoker, when did you quit?: 05/20/17 Cigars Per Day: 0 Information on smoking cessation initiated: No 'Breaking Loose' booklet given: 05/21/17 Hx Alcohol Use: Yes Drug/Substance Use Hx: Yes Substance Use Type: Alcohol, Cocaine, Heroin Hx Substance Use Treatment: Yes ([facility] 12 years ago ) Review of Systems - Review of Systems Able to Perform ROS?: Yes Is the patient limited Bah[place]i proficient: Yes Constitutional: Yes: Symptoms Reported, See HPI, Malaise. No: Chills, Fever HEENTM: Yes: See HPI. No: Symptoms Reported Respiratory: No: Symptoms reported ABD/GI: No: Symptoms Reported Neurological: Yes: Symptoms reported All Other Systems: Reviewed and Negative *Physical Exam - Vital Signs Last Vital Signs Temp Pulse Resp BP Pulse Ox 98.5 F 74 14 129/79 96 05/22/17 12:19 05/22/17 12:19 05/22/17 12:19 05/22/17 12:19 05/22/17 12:19 - Physical Exam General Appearance: Yes: Nourished, Appropriately Dressed. No: Apparent Distress HEENT: positive: AGUS, Normal ENT Inspection, TMs Normal, Pharynx Normal, Other (no contusion, abrasion, area of injury. No hematoma, no bleeding from nose or ears, no evidence of head injury.) Neck: positive: Supple. negative: Tender Respiratory/Chest: positive: Lungs Clear Musculoskeletal: positive: Normal Inspection. negative: CVA Tenderness Extremity: positive: Normal Capillary Refill Integumentary: positive: Normal Color, Warm. negative: Swelling, Ecchymosis, Bruising Neurologic: positive: sample prep technician II-XII NML intact, Fully Oriented, Alert, Normal Mood/ Affect, Normal Response, Motor Strength 5/5 Progress Note - Progress Note Progress Note: Fall with no injury. Patient refusing head CAT scan per protocol. Understands that and with this fall. Unwitnessed at detox program that protocol dictates a head CT be obtained. Patient states she did not have any head injury, has no dizziness, any bleeding from nose or ears, no-mental status changes or headache. Patient refusing CT of head. Patient understands consequence and will notify of any changes in her symptoms as needed once returned. Case waas discussed with RN at [facility] 6th floor and will organize transport back to unit. *DC/Admit/Observation/Transfer Diagnosis at time of Disposition: Opioid dependence with withdrawal Fall with no injury Qualifiers: Encounter type: initial encounter Qualified Code(s): W19.XXXA - Unspecified fall, initial encounter - Discharge Dispostion Disposition: TRANSFER ACUTE CARE/OTHER HOSP Condition at time of disposition: Stable Admit: No - Referrals - Patient Instructions Printed Discharge Instructions: How to Prevent Falls Additional Instructions: Rest, continue program - Post Discharge Activity
== END 2017-05-22 14:03 | disposition short-term general hospital (02) ==
LOC: JER 11:51
DX: F11.23 Opioid dependence with withdrawal (principal); W01.0XXA Fall on same level from slipping, tripping and stumbling without subsequent striking against object, initial encounter; Y93.89 Activity, other specified; Y92.230 Patient room in hospital as the place of occurrence of the external cause; Y99.8 Other external cause status; D64.9 Anemia, unspecified; E11.9 Type 2 diabetes mellitus without complications; B18.2 Chronic viral hepatitis C; I10 Essential (primary) hypertension; G40.909 Epilepsy, unspecified, not intractable, without status epilepticus; Z86.73 Personal history of transient ischemic attack (TIA), and cerebral infarction without residual deficits; Z59.0 Homelessness
CPT/HCPCS: 82962; 99282-25